=== PATIENT | female | born 1995 | race Caucasian/White ===

== ENCOUNTER 2018-09-23 11:37 | Emergency (ER) | payer MEDICARE, OTHER ==
[2018-09-23 11:52] VITALS: O2SAT 99
--- NOTE | 2018-09-23 12:09 | ERPHSYRPT ---
- History of Present Illness Time Seen by Provider: 09/23/18 12:03 Source: patient Exam Limitations: no limitations Patient Subjective Stated Complaint: pt has abscess under left arm since 09/20. she states it has gotten bigger Triage Nursing Assessment: pt alert, resp easy, skin w/d/p. has abscess to left axilla,no drainage Physician History: The patient is a 23-year-old female with family complaining of a worsening small abscess under her left armpit that began on 09/20/18. She is visiting family. She is from [place]. She is trying to get and is taking medications to help conceive. She denies fever or chills. Timing/Duration: day(s) (3), gradual onset, worse Quality: painful Severity: mild Location: extremities (left axilla) Possible Causes: no cause identified Allergies/Adverse Reactions: No Known Drug Allergies Allergy (Unverified 09/23/18 11:52) Home Medications: Letrozole [Femara] 5 mg DAILY 09/23/18 [History] Medroxyprogesterone Acet [[id number] mg] 10 mg DAILY 09/23/18 [History] Hx Tetanus, Diphtheria Vaccination/Date Given: No Hx Influenza Vaccination/Date Given: No Hx Pneumococcal Vaccination/Date Given: No Immunizations Up to Date: Yes - Review of Systems Constitutional: No Fever, No Chills Eyes: No Symptoms Ears, Nose, & Throat: No Symptoms Respiratory: No Cough, No Dyspnea Cardiac: No Chest Pain, No Edema, No Syncope Abdominal/Gastrointestinal: No Abdominal Pain, No Nausea, No Vomiting, No Diarrhea Genitourinary Symptoms: No Dysuria Musculoskeletal: No Back Pain, No Neck Pain Skin: Cellulitis, No Rash Neurological: No Dizziness, No Focal Weakness, No Sensory Changes Psychological: No Symptoms Endocrine: No Symptoms Hematologic/Lymphatic: No Symptoms Immunological/Allergic: No Symptoms All Other Systems: Reviewed and Negative - Past Medical History Pertinent Past Medical History: Yes Other Medical History: pcos - Past Surgical History Past Surgical History: No - Social History Smoking Status: Never smoker Exposure to second hand smoke: No Drug Use: none Patient Lives Alone: No - Female History Hx Last Menstrual Period: month ago Hx Now: No (unsure) - Nursing Vital Signs Nursing Vital Signs: Initial Vital Signs Temperature 98.4 F 09/23/18 11:47 Pulse Rate 92 H 09/23/18 11:47 Respiratory Rate 16 09/23/18 11:47 Blood Pressure 125/92 09/23/18 11:47 O2 Sat by Pulse Oximetry 99 09/23/18 11:47 Pain Scale Pain Intensity 7 - Physical Exam General Appearance: no apparent distress, alert Eye Exam: PERRL/EOMI, eyes nml inspection Ears, Nose, Throat Exam: normal ENT inspection, pharynx normal, moist mucous membranes Neck Exam: normal inspection, non-tender, supple, full range of motion Respiratory Exam: normal breath sounds, lungs clear, No respiratory distress Cardiovascular Exam: regular rate/rhythm, normal heart sounds Gastrointestinal/Abdomen Exam: soft, mass, No tenderness Pelvic Exam: not done Rectal Exam: not done Back Exam: normal inspection, normal range of motion, No CVA tenderness, No vertebral tenderness Extremity Exam: normal inspection, normal range of motion Neurologic Exam: alert, oriented x 3, cooperative, normal mood/affect, sensation nml, No motor deficits Skin Exam: normal color, other (Examination of the left axilla: There is a small approximately 1 cm raised erythematous hard early abscess that is tender to palpation. There is no fluctuance.) SpO2 Interpretation: normal SpO2: 99 Oxygen Delivery: Room Air - Departure Time of Disposition: 12:11 Departure Disposition: Home Clinical Impression: Abscess Condition: Stable Critical Care Time: No Additional Instructions: You have a small early abscess that is forming under left arm pit. It is not ready to be lanced and drained at this time. Take clindamycin 300 mg 4 times a day for 10 days. This is safe to use during . Take Tylenol 1000 mg every 6-8 hours as needed for pain relief. Prescriptions: Clindamycin HCl 1 cap PO QID #40 capsule
[2018-09-23 12:18] VITALS: BP 120/80; PULSE 80
== END 2018-09-23 12:18 | disposition home or self-care (01) ==
LOC: ED 11:37
DX: L02.412 Cutaneous abscess of left axilla (principal)
CPT/HCPCS: 99283